=== PATIENT | female | born 1960 | race Caucasian/White ===

== ENCOUNTER 2020-06-15 23:10 | Inpatient (IN) | payer MEDICAID ==
[~2020-06-15] VITALS: Ht 157.5 cm; Wt 127.0 kg
--- NOTE | 2020-06-15 23:40 | NUR ---
AT BEDSIDE FOR EVAL.
--- NOTE | 2020-06-16 | NUR ---
XRAY AT BEDSIDE
[2020-06-16] MEDS ORDERED: LEVOFLOXACIN 750 MG /D5W 150ML 150 ML IV ONE ×2 (00:30→00:40)
[2020-06-16] MEDS ORDERED: LORAZEPAM 1 MG TABLET PO ONE (00:30)
[2020-06-16] MEDS ORDERED: NITROGLYCERIN PACKET 1 GM PACKET TD ONE (00:30)
[2020-06-16] MEDS ORDERED: ASPIRIN 81 MG TAB.CHEW PO ONE (00:30)
[2020-06-16] MEDS ORDERED: LORAZEPAM 1 MG TABLET ONE (00:40)
[2020-06-16] MEDS ORDERED: ASPIRIN 81 MG TAB.CHEW ONE (00:41)
[2020-06-16] MEDS ORDERED: NITROGLYCERIN PACKET 1 GM PACKET ONE (00:41)
--- NOTE | 2020-06-16 00:58 | NUR ---
YUKIID SWABBED, SENT TO LAB.
[2020-06-16 01:02] LABS: BASOPHILS % (AUTO) 0.2 % (0.0-2.0); EOSINOPHILS % (AUTO) 0.1 % (0.0-6.0); HEMATOCRIT 30 % (33-45); HEMOGLOBIN 9.5 g/dL (11.5-14.8); LYMPHOCYTES # (AUTO) 0.4 /CMM (0.8-4.8); LYMPHOCYTES % (AUTO) 13.2 % (20.0-44.0); MEAN CORPUSCULAR HGB CONC 32 g/dl (31.0-36.0); MEAN CORPUSCULAR VOLUME 67 fL (82-100); MONOCYTES # (AUTO) 0.3 /CMM (0.1-1.30); MONOCYTES % (AUTO) 12.2 % (2.0-12.0); NEUTROPHILS # (AUTO) 2.1 /CMM (1.8-8.9); NEUTROPHILS % (AUTO) 74.3 % (43.0-81.0); PLATELET COUNT (AUTO) 223 /CMM (150-450); RED BLOOD CELL COUNT(AUTO) 4.49 MIL/uL (4.0-5.2); WHITE BLOOD COUNT (AUTO) 2.8 K/uL (4.3-11.0)
[2020-06-16 01:20] LABS: CREATINE KINASE, TOTAL 49 U/L (26-192)
[2020-06-16 01:21] LABS: C-REACTIVE PROTEIN 11.5 mg/dL (0.0-0.9); CALCIUM, SERUM 8.3 mg/dL (8.5-10.1); CARBON DIOXIDE 22 mmol/L (21-32); CHLORIDE 101 mmol/L (98-107); CREATININE 0.8 mg/dL (0.6-1.3); GLUCOSE 123 mg/dL (74-106); POTASSIUM 3.2 mmol/L (3.5-5.1); SODIUM SERUM 137 mmol/L (136-145); UREA NITROGEN, BLOOD 17 mg/dL (7-18)
[2020-06-16 01:30] LABS: ALANINE AMINOTRANSFERASE 34 U/L (12-78); ALBUMIN 2.9 g/dL (3.4-5.0); ALKALINE PHOSPHATASE 80 U/L (46-116); ASPARTATE AMINOTRANSFERASE 42 U/L (15-37); B-TYPE NATRIURETIC PEPTIDE 135 PG/ML (0-125); BILIRUBIN,DIRECT 0.2 mg/dL (0.0-0.2); BILIRUBIN,TOTAL 0.3 mg/dL (0.2-1.0); TOTAL PROTEIN, SERUM 7.2 g/dL (6.4-8.2)
[2020-06-16 01:42] LABS: D-DIMER 0.39 mg/L(FEU (0.17-0.50)
[2020-06-16] MEDS ORDERED: POTASSIUM CHLORIDE 20 MEQ TAB.PRT.SR PO ONE ×4 (01:57→09:47)
[2020-06-16 02:09] LABS: FERRITIN 86 ng/mL (8-388)
--- NOTE | 2020-06-16 02:35 | NUR ---
Fritz melendez in ED - 06/16/20 at 0235 by KRISHNA PROVIDED PT WITH PILLOW AND BLANKETS. PT WAS SAT 96% ON ROOM AIR. PLACED ON 2L NC. ANY HO.
--- NOTE | 2020-06-16 02:35 | NUR ---
PROVIDED PT WITH PILLOW AND BLANKETS. PT WAS SAT 96% ON ROOM AIR. PLACED ON 2L NC. DENIES SOB. VSS.
[2020-06-16 03:08] LABS: BAND % (MANUAL) 1 % (0.0-5.0); LYMPHOCYTES % (MANUAL) 14 % (16-48); MONOCYTES % (MANUAL) 13 % (0-11.0); NEUTROPHILS % (MANUAL) 72 (42-76)
[2020-06-16] MEDS ORDERED: OMEP40CA13 PO (03:30)
[2020-06-16] MEDS ORDERED: ZOLPIDEM TARTRATE 5 MG TABLET PO PRN (04:00)
[2020-06-16] MEDS ORDERED: ACETAMINOPHEN 325 MG TABLET PO PRN (04:00)
[2020-06-16] MEDS ORDERED: REMDESIVIR (CHARGED) 200 MG, *LOADING DOSE 1 EA in IV NS 0.9% 210 ML IV ONE (04:00)
--- NOTE | 2020-06-16 04:37 | NUR ---
PT AMBULATED TO THE RESTROOM WITH ASSITANCE. VSS. SAT 95%. AMBULATORY USING CANE.
[2020-06-16 05:17] LABS: BASOPHILS % (AUTO) 0.3 % (0.0-2.0); EOSINOPHILS % (AUTO) 0.2 % (0.0-6.0); HEMATOCRIT 29 % (33-45); HEMOGLOBIN 9.4 g/dL (11.5-14.8); LYMPHOCYTES # (AUTO) 0.5 /CMM (0.8-4.8); LYMPHOCYTES % (AUTO) 23.1 % (20.0-44.0); MEAN CORPUSCULAR HGB CONC 32 g/dl (31.0-36.0); MEAN CORPUSCULAR VOLUME 67 fL (82-100); MONOCYTES # (AUTO) 0.3 /CMM (0.1-1.30); MONOCYTES % (AUTO) 13.7 % (2.0-12.0); NEUTROPHILS # (AUTO) 1.4 /CMM (1.8-8.9); NEUTROPHILS % (AUTO) 62.7 % (43.0-81.0); PLATELET COUNT (AUTO) 223 /CMM (150-450); RED BLOOD CELL COUNT(AUTO) 4.39 MIL/uL (4.0-5.2); WHITE BLOOD COUNT (AUTO) 2.3 K/uL (4.3-11.0)
[2020-06-16 05:28] LABS: C-REACTIVE PROTEIN 10.3 mg/dL (0.0-0.9)
[2020-06-16 05:30] LABS: CALCIUM, SERUM 8.1 mg/dL (8.5-10.1); CREATININE 0.7 mg/dL (0.6-1.3); POTASSIUM 3.4 mmol/L (3.5-5.1)
--- NOTE | 2020-06-16 06:30 | NUR ---
PT RESTING COMFORTABLY. VSS. REMAINS ON MONITOR AND PULSE OX.
--- NOTE | 2020-06-16 06:39 | NUR ---
SPOKE TO PT REGARDING BREAKFAST, VSS.
--- NOTE | 2020-06-16 07:28 | NUR ---
REPORT GIVEN TO TIKA PIKE FOR RADHA
[2020-06-16] MEDS: PANTOPRAZOLE 40 MG TABLET.DR PO SCH (08:30)
[2020-06-16] MEDS ORDERED: PANTOPRAZOLE 40 MG VIAL ONE (09:10)
[2020-06-16 09:20] LABS: CHOLESTEROL 117 mg/dL (<200); HDL CHOLESTEROL 39 mg/dL (40-60); LDL 72 mg/dL (0-99); TRIGLYCERIDES 70 mg/dL (30-150)
[2020-06-16] MEDS ORDERED: DEXAMETHASONE SOD PHOSPHATE 4 MG/ML VIAL ONE (09:46)
[2020-06-16] MEDS: DEXAMETHASONE SOD PHOSPHATE 10 MG/ML VIAL IV SCH (09:56)
[2020-06-16] MEDS: ENOXAPARIN SODIUM 60 MG/0.6 ML DISP.SYRIN SQ SCH ×2 (09:57→21:29)
--- NOTE | 2020-06-16 11:32 | NUR ---
PER DR. BRADLEY, PATIENT IS NO LONGER A REG[facility] PATIENT. NEEDS TO BE TRANSFERRED TO [facility] DOCTOR.
--- NOTE | 2020-06-16 13:01 | NUR ---
received bed 113-2
--- NOTE | 2020-06-16 13:13 | NUR ---
called for report but charge nurse said to call back in 10min
--- NOTE | 2020-06-16 13:20 | NUR ---
report given to soon rn, per charge nurse pt will go to 117-2
[2020-06-16 13:40] VITALS: BP 117/65
--- NOTE | 2020-06-16 13:40 | NUR ---
AUTOMOTIVE PORTER NOTE PATIENT RECEIVED FROM ER AT 1340. PATIENT BROUGHT TO ROOM VIA GURNEY AND AMBULATED TO BED WITH MINIMAL ASSISTANCE AND CANE. PATIENT IS A&OX4, URDU SPEAKING, ABLE TO MAKE NEEDS KNOWN. PATIENT DENIED PAIN AND SIGNS OF DISTRESS NOTED. PATIENT REMAINED RESTING INE BED, SEMI-FOWLERS, ON ROOM AIR BREATHING EVENLY AND UNLABORED. RIGHT AC #20 ADAM INTACT AND PATENT. ALL NEEDS RENDERED. SAFETY PREACUTION IMPLEMNTED. BED LOCKED IN LOWEST POSITION. SIDE RAILS UP X2. WILL CONTINUE TO MONITOR AND PROVIDE CARE THROUGHOUT THE DURATION OF THE SHIFT.
--- NOTE | 2020-06-16 13:41 | NUR ---
transferred to [facility]
[2020-06-16 16:00] VITALS: BP 118/79
--- NOTE | 2020-06-16 18:57 | NUR ---
RN CLOSING NOTE PATIENT CURRENTLY IN BED, RESTING. PATIENT IS A&OX4, [place] SPEAKING, ABLE TO MAKE NEEDS KNOWN. PATIENT DENIED PAIN AND SIGNS OF DISTRESS NOTED. PATIENT REMAINED RESTING IN BED, SEMI-FOWLERS, ON ROOM AIR BREATHING EVENLY AND UNLABORED. RIGHT AC #20 ADAM INTACT AND PATENT. ALL NEEDS RENDERED. SAFETY PREACUTION IMPLEMNTED. BED LOCKED IN LOWEST POSITION. SIDE RAILS UP X2. WILL ENDORSE TO TOOL AND DIE MAKER NURSE FOR RADHA.
[2020-06-16 20:00] VITALS: BP_SYST 120; BP_SYST 135; BP_DIAS 56; BP_DIAS 87
[2020-06-17] VITALS: BP 123/47
[2020-06-17 04:00] VITALS: BP 128/56
[2020-06-17] MEDS ORDERED: REMDESIVIR (CHARGED) 100 MG in IV NS 0.9% 230 ML IV SCH (04:00)
--- NOTE | 2020-06-17 06:12 | NUR ---
RN notes Patient in bed resting comfortably with no significant change of condition. Alert and oriented x 4, slovak is the primary language but can speak and understands khmer. at the other bed. No respiratory distress or shortness of breath. Breathing even and unlabored. On room air, tolerating well. No complaint of pain or discomfort. Kept clean and dry. Will endorse to next shift for continuity of care.
[2020-06-17 07:28] LABS: BASOPHILS % (AUTO) 0.1 % (0.0-2.0); HEMATOCRIT 30 % (33-45); HEMOGLOBIN 9.6 g/dL (11.5-14.8); LYMPHOCYTES # (AUTO) 0.4 /CMM (0.8-4.8); LYMPHOCYTES % (AUTO) 15.1 % (20.0-44.0); MEAN CORPUSCULAR HGB CONC 33 g/dl (31.0-36.0); MEAN CORPUSCULAR VOLUME 67 fL (82-100); MONOCYTES # (AUTO) 0.3 /CMM (0.1-1.30); NEUTROPHILS # (AUTO) 2.1 /CMM (1.8-8.9); NEUTROPHILS % (AUTO) 73.8 % (43.0-81.0); PLATELET COUNT (AUTO) 246 /CMM (150-450); RED BLOOD CELL COUNT(AUTO) 4.41 MIL/uL (4.0-5.2); WHITE BLOOD COUNT (AUTO) 2.8 K/uL (4.3-11.0)
--- NOTE | 2020-06-17 07:59 | NUR ---
OPEN NOTES PATIENT IS A/O X 4 IN ROOM AIR, WITH NO SIGNS OF DISTRESS. IV R AC #20 G. NO COMPLAIN OF PAIN AT THIS TIME. SAFETY MEASURES ARE APPLIED BED IS IN THE LOWEST POSITION SIDE RAILS UP X 2. CALL LIGHT WITHIN REACH WILL CONTINUE TO MONITOR.
[2020-06-17 08:00] VITALS: BP 130/66
[2020-06-17 08:06] LABS: ALBUMIN 2.8 g/dL (3.4-5.0); BILIRUBIN,TOTAL 0.3 mg/dL (0.2-1.0); CALCIUM, SERUM 8.7 mg/dL (8.5-10.1); CREATININE 0.7 mg/dL (0.6-1.3); POTASSIUM 4.8 mmol/L (3.5-5.1); TOTAL PROTEIN, SERUM 6.9 g/dL (6.4-8.2)
[2020-06-17] MEDS: DEXAMETHASONE SOD PHOSPHATE 10 MG/ML VIAL IV SCH (09:22)
[2020-06-17] MEDS: PANTOPRAZOLE 40 MG TABLET.DR PO SCH (09:22)
[2020-06-17] MEDS: ENOXAPARIN SODIUM 60 MG/0.6 ML DISP.SYRIN SQ SCH (09:24)
[2020-06-17 12:00] VITALS: BP 130/66
[2020-06-17 16:00] VITALS: BP 116/69
--- NOTE | 2020-06-17 18:39 | NUR ---
RN CLOSING NOTES PATIENT IS A/O X 4 IN ROOM AIR, WITH NO SIGNS OF DISTRESS. IV R AC #20 G. NO COMPLAIN OF PAIN AT THIS TIME. PATIENT KEPT CLEAN AND DRY. ALL NEEDS, CARE, TREATMENT, AND MEDICATIONS WERE ADMINISTERED ANTICIPATED PER ORDER. SAFETY MEASURES ARE APPLIED, BED IS IN LOW POSITION SIDE RAILS UP X 2. CALL LIGHT WITHIN REACH WILL ENDORSE TO THE RAIMANN MACHINE OPERATOR NURSE.
--- NOTE | 2020-06-17 19:24 | NUR ---
RN NOTE RECEIVED PATIENT IN BED AWAKE AND ALERT/ORIENTED X 3 IN SEMI MANRIQUE'S POSITION. PT IS ON ROOM AIR. RESPIRATIONS EVEN AND UNLABORED. PT DENIES PAIN OR DISCOMFORT. IV ON RIGHT AC PATENT AND INTACT WITHOUT COMPLICATIONS NOTED AT SITE. PLAN OF CARE DISCUSSED, CALL LIGHT WITHIN REACH, SAFETY MEASURES IN PLACE PER PROTOCOL, WILL MONITOR PATIENT.
--- NOTE | 2020-06-17 19:53 | NUR ---
RN NOTE NOTED WITHOUT CODE STATUS ORDERED IN CHART. SPOKE TO PATIENT AT BEDSIDE WHO STATES THAT SHE WISHES TO BE FULL CODE.
[2020-06-17 20:00] VITALS: BP 137/93
[2020-06-18] VITALS: BP 123/74
--- NOTE | 2020-06-18 01:00 | NUR ---
RN NOTE ASSISTED PT TO THE BATHROOM WITH CANE.
--- NOTE | 2020-06-18 02:00 | NUR ---
RN NOTE PT SLEEPING COMFORTABLY IN BED. NO SIGNS OR SYMPTOMS OF PAIN OR DISCOMFORT. RESPIRATIONS EVEN AND UNLABORED WHILE ON ROOM AIR.
[2020-06-18 04:00] VITALS: BP 140/73
--- NOTE | 2020-06-18 04:11 | NUR ---
RN NOTE PT AWAKE AND ALERT IN BED IN SEMI MANRIQUE'S POSITION. PT OFFERED BED BATH AND LINEN CHANGE BUT PT REFUSED.
[2020-06-18 06:23] LABS: CALCIUM, SERUM 8.8 mg/dL (8.5-10.1); CREATININE 0.8 mg/dL (0.6-1.3); POTASSIUM 4.1 mmol/L (3.5-5.1)
--- NOTE | 2020-06-18 06:39 | NUR ---
RN NOTE NO ACUTE CHANGES OBSERVED OVERNIGHT. PT ALERT AND ORIENTED X 3. REMAINS ON ROOM AIR. RESPIRATIONS EVEN AND UNLABORED. DENIES PAIN OR DISCOMFORT, IV SITE PATENT AND INTACT. FLUSHED WITHOUT COMPLICATIONS NOTED. CALL LIGHT WITHIN REACH, SAFETY MEASURES IN PLACE PER PROTOCOL, BED LOCKED AND IN LOW POSITION, SIDE RAILS UP X 2, ALL NEEDS MET AND ATTENDED TO, WILL ENDORSE TO MORNING FOR RADHA.
[2020-06-18 06:41] LABS: C-REACTIVE PROTEIN 2.8 mg/dL (0.0-0.9)
[2020-06-18] MEDS: PANTOPRAZOLE 40 MG TABLET.DR PO SCH (07:30)
--- NOTE | 2020-06-18 07:30 | NUR ---
CRIME SCENE EXAMINER OPENING NOTES PATIENT IS A/O X 4 IN ROOM AIR, WITH NO SIGNS OF DISTRESS. IV R AC #20 G. NOT IN ANY ACUTE DISTRESS AT THIS TIME. SAFETY MEASURES ARE APPLIED BED IS IN THE LOWEST POSITION SIDE RAILS UP X 2. CALL LIGHT WITHIN REACH WILL CONTINUE TO MONITOR.
[2020-06-18 08:00] VITALS: BP 121/70
[2020-06-18] MEDS: ENOXAPARIN SODIUM 40 MG/0.4 ML DISP.SYRIN SQ SCH (08:48)
[2020-06-18] MEDS: DEXAMETHASONE SOD PHOSPHATE 10 MG/ML VIAL IV SCH (09:37)
[2020-06-18 10:46] LABS: EOSINOPHILS % (AUTO) 0.1 % (0.0-6.0); HEMATOCRIT 29 % (33-45); HEMOGLOBIN 9.2 g/dL (11.5-14.8); LYMPHOCYTES # (AUTO) 0.8 /CMM (0.8-4.8); MONOCYTES # (AUTO) 0.4 /CMM (0.1-1.30); WHITE BLOOD COUNT (AUTO) 3.9 K/uL (4.3-11.0)
[2020-06-18 11:06] LABS: BASOPHILS % (AUTO) 0.2 % (0.0-2.0); LYMPHOCYTES % (AUTO) 19.4 % (20.0-44.0); MEAN CORPUSCULAR HGB CONC 32 g/dl (31.0-36.0); MEAN CORPUSCULAR VOLUME 68 fL (82-100); MONOCYTES % (AUTO) 10.4 % (2.0-12.0); NEUTROPHILS # (AUTO) 2.7 /CMM (1.8-8.9); NEUTROPHILS % (AUTO) 69.9 % (43.0-81.0); PLATELET COUNT (AUTO) 276 /CMM (150-450); RED BLOOD CELL COUNT(AUTO) 4.29 MIL/uL (4.0-5.2)
[2020-06-18 12:00] VITALS: BP 121/70
[2020-06-18 16:00] VITALS: BP 121/70
--- NOTE | 2020-06-18 18:54 | NUR ---
SPEECH THERAPIST EARLY INTERVENTION CLOSING NOTES PATIENT IS A/O X 4 IN ROOM AIR, WITH NO SIGNS OF DISTRESS. IV R AC #20 G. NO COMPLAIN OF PAIN AT THIS TIME. PATIENT KEPT CLEAN AND DRY. ALL NEEDS ATTENDED TO. SAFETY MEASURES ARE APPLIED, BED IS IN LOW POSITION SIDE RAILS UP X 2. WILL ENDORSE TO NEXT SHIFT FOR RADHA. Addendum: 06/18/20 at 1856 by VERONIQUE CORTES RN CLARIFICATION OF DOCUMENTATION PT RIGHT IV #20 PULLED OUT. AWARE. NO NEED FOR RE INSERTION OF IV AT THIS TIME.
--- NOTE | 2020-06-18 19:20 | NUR ---
RN NOTE RECEIVED PT AWAKE AND ALERT/ORIENTED X 3 SITTING UP IN BED. PT ON ROOM AIR WITHOUT SIGNS OF RESPIRATORY DISTRESS. RESPIRATIONS EVEN AND UNLABORED, DENIES PAIN OR DISCOMFORT, MED SURG STATUS, ISOLATION PRECAUTIONS IN PLACE, NO IV NOTED, PER MD NO IV INDICATED AT THIS TIME, PLAN OF CARE DISCUSSED, CALL LIGHT WITHIN REACH, SAFETY MEASURES IN PLACE PER PROTOCOL, BED LOCKED AND IN LOW POSITION, SIDE RAILS UP X 2, WILL MONITOR PATIENT.
[2020-06-18 20:00] VITALS: BP 116/59
[2020-06-19] VITALS: BP 118/60
--- NOTE | 2020-06-19 02:00 | NUR ---
RN NOTE PT SLEEPING IN BED COMFORTABLY WITHOUT SIGNS OF DISTRESS, PAIN OR DISCOMFORT. SAFETY MEASURES IN PLACE, WILL CONTINUE TO MONITOR.
[2020-06-19 04:00] VITALS: BP 133/66
--- NOTE | 2020-06-19 07:03 | NUR ---
RN NOTE NO ACUTE CHANGES OBSERVED OVERNIGHT. PT AWAKE AND ALERT/ORIENTED X 3 SITTING UP IN BED. PT ON ROOM AIR WITHOUT SIGNS OF RESPIRATORY DISTRESS. RESPIRATIONS EVEN AND UNLABORED, DENIES PAIN OR DISCOMFORT, MED SURG STATUS, ISOLATION PRECAUTIONS IN PLACE, NO IV NOTED, PER MD NO IV INDICATED AT THIS TIME, ABLE TO AMBULATE TO BATHROOM WITH CANE WITH STAND BY ASSIST. CALL LIGHT WITHIN REACH, SAFETY MEASURES IN PLACE PER PROTOCOL, BED LOCKED AND IN LOW POSITION, SIDE RAILS UP X 2, WILL ENDORSE TO MORNING RN FOR RADHA.
--- NOTE | 2020-06-19 07:44 | NUR ---
MS RN OPENING NOTE PATIENT IS IN BED RESTING. PATIENT IS IN NO ACUTE DISTRESS. PATIENT IS ON ROOM AIR WITH OXYGEN SATURATION OF ABOVE 90%. NO SOB NOTED. HOB ELEVATED. SAFETY PRECAUTIONS ARE IN PLACE. BED IN THE LOWEST POSITION WITH SIDE RAILS UP. BED BREAK IS ON, CALL LIGHT WITHIN REACH. WILL CONTINUE TO MONITOR PATIENT CLOSELY THROUGH OUT THE SHIFT.
[2020-06-19 08:00] VITALS: BP 120/70
[2020-06-19] MEDS: PANTOPRAZOLE 40 MG TABLET.DR PO SCH (08:15)
[2020-06-19] MEDS: DEXAMETHASONE SOD PHOSPHATE 10 MG/ML VIAL IV SCH (08:28)
[2020-06-19] MEDS: ENOXAPARIN SODIUM 40 MG/0.4 ML DISP.SYRIN SQ SCH (08:30)
[2020-06-19 12:00] VITALS: BP 149/97
[2020-06-19 16:00] VITALS: BP 125/63
--- NOTE | 2020-06-19 18:41 | NUR ---
MS RN CLOSING NOTE PATIENT IS IN BED RESTING. PATIENT IS IN NO ACUTE DISTRESS. NO SOB NOTED. PATIENT IS ON ROOM AIR SATURATING ABOVE 95%. PATIENT IS AMBULATORY WITH CANE. SAFETY PRECAUTIONS ARE IN PLACE. BED IN THE LOWEST POSITION WITH SIDE RAILS UP. BED BREAK IS [employer] LIGHT WITHIN REACH. ENDORSE PATIENT TO THE PHYSICAL DIRECTOR NURSE FOR RADHA.
--- NOTE | 2020-06-19 19:10 | NUR ---
RN OPENING NOTE RECEIVED PATIENT IN BED RESTING ALERT ORIENTED X4 VERBALLY RESPONSIVE NO SOB NOT ACUTE DISTRESS NOTED ON MED SURG MONITORING,ON ROOM AIR O2:95% AMBULATORY WITH ASSIST BED IN LOW POSITION AND LOCKED CALL LIGHT WITHIN REACH,SAFETY MEASURE IMPLEMENT CONTINUE TO MONITOR.
[2020-06-19 20:00] VITALS: BP 109/57
[2020-06-20] VITALS: BP 112/60
--- NOTE | 2020-06-20 02:56 | NUR ---
RN NOTE ACETAMINOPHEN 650 MG PO GIVEN FOR MILD PAIN / CONTINUE TO MONITOR.
[2020-06-20 04:00] VITALS: BP 113/57
--- NOTE | 2020-06-20 06:32 | NUR ---
RN CLOSING NOTE PATIENT REMAINS ON ALERT ORIENTATED VERBALLY RESPONSIVE NO SOB NOT ACUTE DISTRESS NOTED,ON STABLE CONDITION,KEPT CALL LIGHT WITHIN REACH,KEPT COMFORTABLE,ALL NEEDS MET.ENDORSE NEXT COMING SHIFT FOR CONTINUATION OF CARE.
[2020-06-20 08:00] VITALS: BP 94/47
--- NOTE | 2020-06-20 08:00 | NUR ---
RN OPENING NOTE RECEIVED PATIENT IN BED WITH HOB AT [facility]. PATIENT IS AOX4. PATIENT HAS NO IV ACCESS AND REFUSES A NEW ONE. PATIENT IS ON ROOM AIR AND HAS NO SIGNS OF RESPIRATORY DISTRESS. SKIN IS INTACT. BED IS LOCKED IN LOWEST POSITION, 3 SIDE RAILS RAISED, CALL MURO WITHIN REACH. WILL CONTINUE TO MONITOR THROUGHOUT SHIFT.
[2020-06-20] MEDS: DEXAMETHASONE SOD PHOSPHATE 10 MG/ML VIAL IV SCH ×2 (08:03→08:18)
[2020-06-20] MEDS: PANTOPRAZOLE 40 MG TABLET.DR PO SCH (08:05)
[2020-06-20] MEDS: ENOXAPARIN SODIUM 40 MG/0.4 ML DISP.SYRIN SQ SCH (08:05)
[2020-06-20] MEDS ORDERED: FERR325T23 PO (08:35)
[2020-06-20] MEDS ORDERED: DEXA6TAB6 PO (08:35)
--- NOTE | 2020-06-20 15:00 | NUR ---
DISCHARGE NOTE PATIENT DISCHARGED HOME. PATIENT ESCORTED TO FRONT LOBBY TO BE PICKED UP BY DAUGHTER, CHOSE TO WALK INSTEAD OF USE WHEELCHAIR. ALL BELONGINGS WITH PATIENT. BELONGINGS LIST AND DISCHARGE PAPERWORK SIGNED. EDUCATION PROVIDED TO PATIENT REGARDING DISCHARGE.
== END 2020-06-20 15:08 | disposition home or self-care (01) | DRG 137 ==
LOC: ER 23:10 → TRANSITION 06-16 03:45 → TELE1 06-16 13:21 → MEDSG1 06-16 13:53
PROVIDERS: ADMIT Internal Medicine; ATTEND Internal Medicine
PROC: XW033E5 Introduction of Remdesivir Anti-infective into Peripheral Vein, Percutaneous Approach, New Technology Group 5 (ICD-10-PCS; principal; 2020-06-16)
DX: U07.1 COVID-19 (principal); J12.82 Pneumonia due to coronavirus disease 2019; Z68.43 Body mass index [BMI] 50.0-59.9, adult; D50.9 Iron deficiency anemia, unspecified; D72.819 Decreased white blood cell count, unspecified; E66.01 Morbid (severe) obesity due to excess calories; R07.89 Other chest pain; J96.01 Acute respiratory failure with hypoxia; E44.0 Moderate protein-calorie malnutrition
CPT/HCPCS: 36415; 71045-TC; 80048-TC; 80053-TC; 80061-TC; 80076-TC; 82550-TC; 82728-TC; 82962-TC; 83540-TC; 83605-TC; 83615-TC; 83880; 84484-TC; 85025-TC; 85378-TC; 85730-TC; 86140-TC; 87040-TC; 87081-TC; 97116-TC; 97530-TC; A6403; C9113; G0378; J1100; J1650; J1956; U0003